=== PATIENT | female | born 2000 | race Caucasian/White ===

== ENCOUNTER 2021-03-12 20:23 | Emergency (ER) | payer BC, MEDICAID ==
[2021-03-12] MEDS ORDERED: Ondansetron 4 MG Tab.DIS PO ONE (20:24)
[2021-03-12] MEDS ORDERED: Sodium Chloride 0.9% 10 ML Syringe FLUSH PRN (21:23)
[2021-03-12] MEDS ORDERED: Ondansetron 4 MG/2 ML SDV IVPUSH ONE (21:25)
[2021-03-12] MEDS ORDERED: Sodium Chloride 0.9% 1,000 ML IV ONE (21:25)
[2021-03-12] MEDS ORDERED: LORazepam 2 MG/ML SDV IM ONE (22:13)
== END 2021-03-12 23:45 ==
LOC: FB.ED 20:23
DX: R11.14 Bilious vomiting (principal); R56.9 Unspecified convulsions; Z88.0 Allergy status to penicillin; Z79.899 Other long term (current) drug therapy
CPT/HCPCS: 96372; 99284; J2060; Q0162

== ENCOUNTER 2024-03-07 09:37 | Emergency (ER) | payer BC, MEDICAID ==
[2024-03-07] MEDS ORDERED: Sodium Chloride 0.9% 1,000 ML IV SCH (10:00)
[2024-03-07] MEDS ORDERED: Ondansetron 4 MG/2 ML SDV IVPUSH ONE (10:00)
[2024-03-07] MEDS ORDERED: Sodium Chloride 0.9% 10 ML Syringe FLUSH PRN (10:00)
[2024-03-07] MEDS: LORazepam 2 MG/ML SDV IM SCH (10:21)
== END 2024-03-07 11:55 | disposition home or self-care (01) ==
LOC: FB.ED 09:37
DX: A08.4 Viral intestinal infection, unspecified (principal); Z88.2 Allergy status to sulfonamides; Z88.0 Allergy status to penicillin; Z79.899 Other long term (current) drug therapy
CPT/HCPCS: 96372; 99283; J2060